=== PATIENT | female | born 1960 | race Caucasian/White ===

== ENCOUNTER 2019-12-28 09:43 | Outpatient (CLI) | payer OTHER ==
[2019-12-28 13:38] LABS: BASOPHILS # (AUTO) 0.1 10^3/uL (0.0-0.1); BASOPHILS % (AUTO) 0.7 %; EOSINOPHILS # (AUTO) 0.2 10^3/uL (0.0-0.7); EOSINOPHILS % (AUTO) 2.9 %; HGB - HEMOGLOBIN 14.8 g/dL (12.0-16.0); LYMPHOCYTES # (AUTO) 2.5 10^3/uL (1.5-3.5); LYMPHOCYTES % (AUTO) 30.3 %; MEAN CORPUSCULAR HEMOGLOBIN 30.5 pg (27.0-31.0); MEAN CORPUSCULAR HGB CONC 32.2 g/dL (32.0-36.0); MEAN CORPUSCULAR VOLUME 94.8 fL (81.0-99.0); MEAN PLATELET VOLUME 10.8 fL (7.9-10.8); MONOCYTES # (AUTO) 0.5 10^3/uL (0.0-1.0); MONOCYTES % (AUTO) 5.6 %; NEUTROPHILS # (AUTO) 4.9 10^3/uL (1.5-6.6); NEUTROPHILS % (AUTO) 60.3 %; PLT - PLATELET COUNT 287 10^3/uL (130-450); RED BLOOD COUNT 4.85 10^6/uL (4.20-5.40); RED CELL DISTRIBUTION WIDTH 13.3 % (12.0-15.0); WHITE BLOOD COUNT 8.2 x10^3/uL (4.8-10.8)
[2019-12-28 13:44] LABS: ALBUMIN 4.1 g/dL (3.2-5.5); ALBUMIN/GLOBULIN RATIO 1.1 (1.0-2.2); ALKALINE PHOSPHATASE 82 IU/L (42-121); ALT ALANINE AMINOTRANSFERASE 47 IU/L (10-60); AST ASPARTATE AMINOTRANSFERASE 40 IU/L (10-42); BILIRUBIN,TOTAL 0.7 mg/dL (0.2-1.0); BUN - BLOOD UREA NITROGEN 10 mg/dL (6-20); CALCIUM 9.2 mg/dL (8.5-10.3); CARBON DIOXIDE - CO2 24 mmol/L (21-32); CHLORIDE 104 mmol/L (101-111); CHOL/HDL RATIO 6.9 (<4.4); CHOLESTEROL 233 mg/dL; CREATININE 0.5 mg/dL (0.4-1.0); GLUCOSE 117 mg/dL (70-100); HDL CHOLESTEROL 34 mg/dL; LDL CHOLESTEROL,CALCULATED 151 mg/dL; LDL/HDL RATIO 4.4 (<4.4); SODIUM 140 mmol/L (135-145); TOTAL PROTEIN 7.8 g/dL (6.7-8.2); VLDL CHOLESTEROL 48 mg/dL
== END 2019-12-28 23:59 | disposition home or self-care (01) ==
LOC: LAB.WCP 09:43
PROVIDERS: ATTEND Registered Nurse
DX: E66.9 Obesity, unspecified (principal); E78.5 Hyperlipidemia, unspecified; I10 Essential (primary) hypertension; F41.9 Anxiety disorder, unspecified; Z87.891 Personal history of nicotine dependence; F32.9 Major depressive disorder, single episode, unspecified
CPT/HCPCS: 36415; 80053; 80061; 83721; 84443; 85025

== ENCOUNTER 2020-12-13 09:30 | Outpatient (CLI) | payer MEDICAID ==
[2020-12-13 14:30] LABS: BASOPHILS # (AUTO) 0.1 10^3/uL (0.0-0.1); BASOPHILS % (AUTO) 0.8 %; EOSINOPHILS # (AUTO) 0.3 10^3/uL (0.0-0.7); EOSINOPHILS % (AUTO) 2.8 %; HCT - HEMATOCRIT 43.1 % (37.0-47.0); HGB - HEMOGLOBIN 14.1 g/dL (12.0-16.0); LYMPHOCYTES % (AUTO) 21.1 %; MEAN CORPUSCULAR HEMOGLOBIN 31.3 pg (27.0-31.0); MEAN CORPUSCULAR HGB CONC 32.7 g/dL (32.0-36.0); MEAN CORPUSCULAR VOLUME 95.8 fL (81.0-99.0); MEAN PLATELET VOLUME 10.7 fL (7.9-10.8); MONOCYTES # (AUTO) 0.5 10^3/uL (0.0-1.0); MONOCYTES % (AUTO) 5.7 %; NEUTROPHILS # (AUTO) 6.6 10^3/uL (1.5-6.6); NEUTROPHILS % (AUTO) 69.3 %; PLT - PLATELET COUNT 253 10^3/uL (130-450); RED CELL DISTRIBUTION WIDTH 13.7 % (12.0-15.0); WHITE BLOOD COUNT 9.5 x10^3/uL (4.8-10.8)
[2020-12-13 14:51] LABS: ALBUMIN 4.1 g/dL (3.2-5.5); ALBUMIN/GLOBULIN RATIO 1.3 (1.0-2.2); ALKALINE PHOSPHATASE 73 IU/L (42-121); ALT ALANINE AMINOTRANSFERASE 35 IU/L (10-60); AST ASPARTATE AMINOTRANSFERASE 25 IU/L (10-42); BILIRUBIN,TOTAL 1.1 mg/dL (0.2-1.0); BUN - BLOOD UREA NITROGEN 13 mg/dL (6-20); CALCIUM 9.2 mg/dL (8.5-10.3); CARBON DIOXIDE - CO2 29 mmol/L (21-32); CHLORIDE 104 mmol/L (101-111); CHOLESTEROL 216 mg/dL; CREATININE 0.4 mg/dL (0.4-1.0); GFR - MDRD 162 (>89); GLUCOSE 112 mg/dL (70-100); HDL CHOLESTEROL 43 mg/dL; LDL CHOLESTEROL,CALCULATED 126 mg/dL; LDL/HDL RATIO 2.9 (<4.4); SODIUM 141 mmol/L (135-145); TOTAL PROTEIN 7.2 g/dL (6.7-8.2); TRIGLYCERIDES 233 mg/dL; VLDL CHOLESTEROL 47 mg/dL
[2020-12-13 14:56] LABS: THYROID STIMULATING HORMONE 2.24 uIU/mL (0.34-5.60)
== END 2020-12-13 09:31 | disposition home or self-care (01) ==
LOC: LAB.S 09:30
PROVIDERS: ATTEND Registered Nurse
DX: I10 Essential (primary) hypertension (principal); E78.5 Hyperlipidemia, unspecified; F41.9 Anxiety disorder, unspecified; F32.9 Major depressive disorder, single episode, unspecified
CPT/HCPCS: 36415; 80053; 80061; 83721; 84443; 85025

== ENCOUNTER 2022-12-30 12:54 | Outpatient (CLI) | payer MEDICAID ==
[2022-12-30 13:14] LABS: BASOPHILS # (AUTO) 0.1 10^3/uL (0.0-0.1); BASOPHILS % (AUTO) 0.6 %; EOSINOPHILS # (AUTO) 0.2 10^3/uL (0.0-0.7); EOSINOPHILS % (AUTO) 1.4 %; HCT - HEMATOCRIT 44.5 % (37.0-47.0); HGB - HEMOGLOBIN 14.8 g/dL (12.0-16.0); LYMPHOCYTES # (AUTO) 2.4 10^3/uL (1.5-3.5); LYMPHOCYTES % (AUTO) 21.2 %; MEAN CORPUSCULAR HEMOGLOBIN 30.8 pg (27.0-31.0); MEAN CORPUSCULAR HGB CONC 33.3 g/dL (32.0-36.0); MEAN CORPUSCULAR VOLUME 92.7 fL (81.0-99.0); MEAN PLATELET VOLUME 9.8 fL (7.9-10.8); MONOCYTES # (AUTO) 0.7 10^3/uL (0.0-1.0); MONOCYTES % (AUTO) 6.1 %; NEUTROPHILS # (AUTO) 8.1 10^3/uL (1.5-6.6); NEUTROPHILS % (AUTO) 70.4 %; PLT - PLATELET COUNT 259 10^3/uL (130-450); RED CELL DISTRIBUTION WIDTH 13.8 % (12.0-15.0); WHITE BLOOD COUNT 11.5 x10^3/uL (4.8-10.8)
[2022-12-30 14:01] LABS: THYROID STIMULATING HORMONE 1.84 uIU/mL (0.34-5.60)
[2022-12-30 14:32] LABS: ALBUMIN 3.9 g/dL (3.2-5.5); ALBUMIN/GLOBULIN RATIO 1.1 (1.0-2.2); ALKALINE PHOSPHATASE 86 IU/L (42-121); ALT ALANINE AMINOTRANSFERASE 32 IU/L (10-60); AST ASPARTATE AMINOTRANSFERASE 24 IU/L (10-42); BILIRUBIN,TOTAL 0.9 mg/dL (0.2-1.0); BUN - BLOOD UREA NITROGEN 8 mg/dL (6-20); CALCIUM 8.8 mg/dL (8.5-10.3); CARBON DIOXIDE - CO2 27 mmol/L (21-32); CHLORIDE 101 mmol/L (101-111); CHOL/HDL RATIO 2.9 (<4.4); CHOLESTEROL 143 mg/dL; CREATININE 0.4 mg/dL (0.4-1.0); GFR - MDRD 161 (>89); GLUCOSE 115 mg/dL (70-100); HDL CHOLESTEROL 49 mg/dL; LDL CHOLESTEROL,CALCULATED 65 mg/dL; LDL/HDL RATIO 1.3 (<4.4); POTASSIUM 3.5 mmol/L (3.5-5.0); SODIUM 139 mmol/L (135-145); TOTAL PROTEIN 7.3 g/dL (6.7-8.2); TRIGLYCERIDES 143 mg/dL; VLDL CHOLESTEROL 29 mg/dL
== END 2022-12-30 12:55 | disposition home or self-care (01) ==
LOC: LAB 12:54
PROVIDERS: ATTEND Registered Nurse
DX: I10 Essential (primary) hypertension (principal); Z79.899 Other long term (current) drug therapy; E78.5 Hyperlipidemia, unspecified
CPT/HCPCS: 36415; 80053; 80061; 83721; 84443; 85025

== ENCOUNTER 2023-04-02 10:47 | Outpatient (CLI) | payer BC, MEDICAID ==
[2023-04-02] MEDS ORDERED: ALBUTEROL 1 PUFF INH STA (15:15)
== END 2023-04-02 10:48 | disposition home or self-care (01) ==
LOC: RT 10:47
PROVIDERS: ATTEND Registered Nurse
DX: J45.909 Unspecified asthma, uncomplicated (principal)
CPT/HCPCS: 94060; 94729

== ENCOUNTER 2023-05-07 10:19 | Emergency (ER) | payer BC ==
--- NOTE | 2023-05-07 10:40 | ED Physician Documentation ---
PD HPI NECK PAIN - Stated complaint Stated Complaint: NECK PX - Chief complaint Chief Complaint: General - History obtained from History obtained from: Patient - History of Present Illness Timing - onset: How many days ago (1) Timing - duration: Days (1) Timing - details: Gradual onset, Still present Location: Upper, Right (initially one side then both involved with paina nd stiffness. No fever, rash radiation, weakness, nmbness.), Left Quality: Pain, Spasm, Aching Associated symptoms: No: Fever, Weakness, Numbness Worsened by: Movement, Palpation Contributing factors: No: Lifting, Twisting, Trauma Similar symptoms before: Has not had sx before Recently seen: Not recently seen Review of Systems Constitutional: denies: Fever Nose: denies: Rhinorrhea / runny nose, Congestion Throat: denies: Sore throat Respiratory: denies: Cough Skin: denies: Rash, Lesions PD PAST MEDICAL HISTORY - Past Medical History Cardiovascular: None Musculoskeletal: None - Present Medications Home Medications: Ambulatory Orders Medication Instructions Recorded Confirmed HYDROcod/ACETAM 5/325 [Childs 5/325] 1 ea PO Q6H PRN #15 tablet 05/07/23 methocarbamoL [Robaxin] 500 mg PO Q6H PRN #20 tablet 05/07/23 - Allergies Allergies/Adverse Reactions: Allergies Allergy/AdvReac Type Severity Reaction Status Date / Time morphine Allergy Hives Verified 05/07/23 10:36 PD ED PE NORMAL - Vitals Vital signs reviewed: Yes - General General: Alert and oriented X 3, No acute distress, Well developed/nourished, Other (guarding ROM of her neck.) - Neck Neck: Supple, no meningeal sign, No bony TTP (has tenderness focally at upper trapezius insertion areas and moderate tender along trapezius muslces laterally. ), No adenopathy - Cardiac Cardiac: RRR, No murmur - Respiratory Respiratory: No respiratory distress, Clear bilaterally - Derm Derm: Normal color, Warm and dry, No rash Results - Vitals Vitals: Oxygen O2 Source Room air PD Medical Decision Making - ED course Complexity details: considered differential (muscular type neck pain without red flags on history nor exam. Will treat with muscle relaxants and pain meds. She had focal tenderness at uppeer trapezius insertions both sides so I did trigger point injection with lidocaine 1.5 ml each side. ), d/w patient Departure - Departure Disposition: 01 Home, Self Care Clinical Impression: Acute strain of neck muscle Qualifiers: Encounter type: initial encounter Qualified Code(s): S16.1XXA - Strain of muscle, fascia and tendon at neck level, initial encounter Condition: Stable Record reviewed to determine appropriate education?: Yes Instructions: ED Sprain Strain Neck Follow-Up: Raissa Bee ARNP [Primary Care Provider] - Prescriptions: HYDROcod/ACETAM 5/325 [Childs 5/325] 1 ea PO Q6H PRN #15 tablet PRN Reason: Pain methocarbamoL [Robaxin] 500 mg PO Q6H PRN #20 tablet PRN Reason: Spasms Comments: He is gentle stretching for the neck to help reduce stiffness and spasms. He can use Tylenol 600 500 to 650 mg 4 times daily. Robaxin muscle relaxant for stiffness and spasms. You can add the hydrocodone in lieu of Tylenol every 6 hours if needed for worse pain. Neck and back pain are relatively common in often go away within a week or so. Follow-up if needed still approximately a week. I sent your prescriptions to [facility] pharmacy. My narcotic instructions I am prescribing a short course of narcotic pain medication for you. These are potentially dangerous and addictive medications that should be used carefully. These medications may constipate you. Take an [id number] stool softener such as docusate twice daily with plenty of water while taking these medications. If you go 24 hours without a bowel movement, take [id number]-teafbmq MiraLAX, per package instructions. Do not drink or drive while taking these medications. If you received narcotic or sedating medications while in the emergency department do not drive for 24 hours. Store this medication in a safe, secure place and out of reach of children. It is a violation of federal law to give or sell this medication to another person or to use in a manner other than prescribed. The ED will not refill narcotic prescriptions, including prescriptions lost or stolen. You can dispose of unwanted medications at the [facility]'s office or at several pharmacies such as [facility]. Forms: PCP List Discharge Date/Time: 05/07/23 12:36
[2023-05-07] MEDS ORDERED: methocarbamoL 500 MG TABLET PO STA (10:50)
[2023-05-07] MEDS ORDERED: HYDROcod/ACETAM 5/325 MG TABLET PO STA (10:50)
[2023-05-07 12:45] VITALS: BP 120/87; O2SAT 99
== END 2023-05-07 12:36 | disposition home or self-care (01) ==
LOC: ED 10:19
DX: S16.1XXA Strain of muscle, fascia and tendon at neck level, initial encounter (principal); X58.XXXA Exposure to other specified factors, initial encounter
CPT/HCPCS: 20552; 99282; 99283; A9270

== ENCOUNTER 2023-08-05 13:58 | Outpatient (CLI) | payer BC, MEDICARE ==
--- NOTE | 2023-08-05 14:52 | Sleep Patient Instructions ---
Sleep Center Visit Summary - Patient Visit Information Reason for Visit: Initial consult for evaluation of sleep disordered breathing and other sleep issues. - Patient Instructions Instructions Attached: Sleep Study Additional Instructions: You will be completing a sleep study, either an in-lab polysomnography (PSG) or home sleep study (HST). You will follow-up in the sleep care office after the sleep study is completed to hear the results and talk about therapy, if needed. You will be called by our office staff to schedule this appointment, but you may contact us with any questions. - Clinic Information Contact: [facility] [address] [place] [address] [email or web address] T: [phone]
--- NOTE | 2023-08-05 14:54 | SLEEP CARE CONSULTATION ---
Information from patient questionnaire entered by Maicol Panda. I have reviewed and concur with the information entered by Maicol Panda. This document represents the service I personally performed and the decisions made by me, Gisel Hernandez ARNP. History of Present Illness Service Date and Time: 08/05/2023 1358 Reason for Visit: New patient Chief Complaint: reports: Insomnia, Unrefreshed sleep, Snoring, Excessive daytime sleepiness, Frequent awakenings at night Date of Onset: YRS Usual bedtime: 11PM Time it takes to fall asleep: A LONG TIME; several hours, 3-4 times a week Snores at night: Yes Observed to quit breathing while asleep: Yes Sleeps alone due to snoring: Yes Number of times waking at night: 5-6 Reasons for waking at night: reports: Gasping for air, Bathroom, Other (UNKNOWN). denies: Choking, Snoring Toss, Turn, or Twitch while sleeping: Yes Recalls having dreams: Yes Usually gets out of bed at: 7AM Feels refreshed in the morning: No Morning headache: Yes (SOMETIMES; 2 times a month) Sleepy or fatigued during the day: Yes Ever fallen asleep while driving: No Takes day naps: Yes (2 times a week for a couple hours) Dreams during day naps: Yes Prior sleep studies: No Additional HPI information: I had the pleasure of seeing JOVANNI MELTON today regarding the possibility of her having a sleep disorder. Her current complaints are daytime sleepiness, fatigue, frequent night awakenings, insomnia, snoring and unrefreshed sleep. She was diagnosed with atrial fibrillation and had a cardioversion. She was placed on a medication to slow her heart rate and she woke up in this last week and felt lightheaded. She has a call in to discuss with doctor. - Parasomnia Symptoms Ever been unable to move upon waking from sleep: No Walks in sleep: No Talks in sleep: Yes Ever acted out dreams in sleep: No Ever felt weak in the knees when startled or emotional: No Bothered by creepy, crawly, restless sensations in legs: Yes (when she lays down) Problems with memory or concentration: No Subjective Initial [place] Sleepiness Scale score: 5 (07/26/23) Past Medical History Past Medical History: reports: Hypertension, Anxiety, Other (AFIB) Social History The patient's occupation is a RE. Patient is and lives in [place]. Have you smoked in the past 12 months: No Cigarettes per day (20/pack): 10 Years of smokin Quit date: 2021 Smoking Pack Years: 10.0 Alcohol use: Yes Alcohol amount and frequency: HAVE NOT DRANK IN 4MONTHS Caffeine use: Yes Caffeine amount and frequency: 1 CUP COFFEE A DAY Family History Family history of sleep disordered breathing: Yes Family Hx Sleep Apnea: Other: Snoring (UNCLE [employer] COUSINS), Sleep apnea - Treated ([employer]), Sleep apnea - Untreated ([employer]) Allergies and Home Medications Known drug allergies: Yes (as listed) Drug allergies reviewed: Yes Home medication list reviewed: Yes Allergy and home medication list: Allergies morphine Allergy (Verified 08/04/23 09:29) Hives Sulfa Home Medications Medication Instructions Recorded Confirmed Last Taken Type Acetaminophen [Tylenol Arthritis] See Rx Instructions .ROUTE .COMPLEX 08/05/23 08/05/23 Unknown History Amlodipine Besylate [Norvasc] See Rx Instructions .ROUTE .COMPLEX 08/05/23 08/05/23 Unknown History Apixaban [Eliquis] See Rx Instructions .ROUTE .COMPLEX 08/05/23 08/05/23 Unknown History Citalopram Hydrobromide See Rx Instructions .ROUTE .COMPLEX 08/05/23 08/05/23 Unknown History [Citalopram HBr] Fluticasone/Salmeterol [Advair Hfa See Rx Instructions .ROUTE .COMPLEX 08/05/23 08/05/23 Unknown History 115-21 Mcg Inhaler] Losartan [Cozaar] See Rx Instructions .ROUTE .COMPLEX 08/05/23 08/05/23 Unknown History bisoproloL fumarate [Bisoprolol See Rx Instructions .ROUTE .COMPLEX 08/05/23 08/05/23 Unknown History Fumarate] hydroCHLOROthiazide [Hydrodiuril] See Rx Instructions .ROUTE .COMPLEX 08/05/23 08/05/23 Unknown History Review of Systems Weight gain over past 5 years: 30 Cardiovascular: reports: high blood pressure, irregular heart rate or pulse, leg or foot swelling Respiratory: reports: shortness of breath, wheeze Gastrointestinal: denies: heartburn Neurological: denies: headaches Psychiatric: reports: anxiety Ear/Nose/Throat: reports: dry mouth/throat. denies: tonsillectomy Musculoskeletal: reports: joint pain, back pain, muscle pain or cramping Immunologic: reports: sneezing Physical Exam Vital signs obtained and entered by: MAICOL Danielson MA Blood Pressure: 130/82 (LEFT ARM) Cuff size: regular Heart Rate: 79 O2 Saturation: 95 Height: 5 ft 5 in Weight: 245 lb 9.6 oz Body Mass Index: 40.8 BMI Classification: Morbidly Obese Neck circumference: 17.5 Mouth and throat: narrow oropharynx Soft palate: long Hard palate: normal Uvula: normal Uvula visualization: 25% Mallampati Class III Tongue: normal in size Tonsils: small Neck: normal w/o lymphadenopathy or thyromegaly Heart: regular rate and rhythm Lungs: clear bilaterally Impression and Plan 1. Suspected Obstructive Sleep Apnea-Hypopnea Syndrome, as suggested by a history of loud and irregular snoring, gasping or choking in sleep, frequent awakening during the night, unrefreshed sleep, cognitive impairment, and excessive daytime sleepiness. Narrow oropharynx and obesity are common predisposing factors for obstructive sleep apnea-hypopnea syndrome. I recommend proceeding to polysomnography to confirm the diagnosis and to assess severity. If the patient has significant sleep disordered breathing, a manual CPAP titration study will also be performed to find the optimal treatment pressure. I informed the patient of what the sleep studies involve and after some discussion, obtained agreement to proceed. The pathophysiology of obstructive sleep apnea-hypopnea syndrome was discussed with the patient and health risks of cardiovascular and cerebrovascular disease if not treated. Risks of drowsy driving discussed in detail and patient advised to avoid long distance driving and to pullboat engineer at the first sign of drowsiness. Patient agreed to plan. * Schedule polysomnography +- manual CPAP titration study and return in 1-2 weeks after the study to discuss result and initiate therapy. * Avoid long distance driving or driving when feeling sleepy. * Avoid alcohol, sedative and muscle relaxant around bedtime. * Attempt to lose weight. * Review instructions provided by trained office staff on how to prepare for the sleep study. * Return for follow-up after sleep study completed. Counseling Topics: Weight loss health impact Plan: PSG Visit Type: In Office Time Spent with Patient (minutes): 30 Provider Statement: I spent 100% of the Face to Face Visit with the patient with greater than 50% spent counseling the patient and coordination of care.
[2023-08-05 15:11] VITALS: BP 130/82; O2SAT 95
== END 2023-08-05 13:59 | disposition home or self-care (01) ==
LOC: SC 13:58
PROVIDERS: ATTEND Nurse Practitioner Family
DX: G47.10 Hypersomnia, unspecified (principal); R53.83 Other fatigue; G47.8 Other sleep disorders; R51.9 Headache, unspecified; R06.83 Snoring; I10 Essential (primary) hypertension; I49.9 Cardiac arrhythmia, unspecified; E66.01 Morbid (severe) obesity due to excess calories; Z87.891 Personal history of nicotine dependence; Z68.41 Body mass index [BMI] 40.0-44.9, adult
CPT/HCPCS: 99203; G0463; 99212

== ENCOUNTER 2023-08-21 09:37 | Outpatient (CLI) | payer MEDICARE | END 2023-08-21 09:38 | disposition home or self-care (01) | LOC: SC 09:37 | PROVIDERS: ATTEND Nurse Practitioner Family | DX: G47.33 Obstructive sleep apnea (adult) (pediatric) (principal); R09.02 Hypoxemia; E66.01 Morbid (severe) obesity due to excess calories; Z68.41 Body mass index [BMI] 40.0-44.9, adult | CPT/HCPCS: G0399 ×2; 95806 ==

== ENCOUNTER 2023-09-05 14:54 | Outpatient (CLI) | payer MEDICARE ==
--- NOTE | 2023-09-05 15:33 | Sleep Patient Instructions ---
Sleep Center Visit Summary - Patient Visit Information Reason for Visit: Sleep study follow-up - Patient Instructions Instructions Attached: CPAP Additional Instructions: You are being started on CPAP therapy with pressure setting at 4-15 cmH2O. You w ill need to call the sleep care office to set up your follow up once you have your APAP machine and we will schedule a visit to check compliance and response to therapy at that time. You may call the office with any concerns about pressure feeling too low or too much for adjustment, if needed. You should contact DME supplier for any questions or concerns about mask or equipment. Please call office to schedule a follow up appointment in the sleep care office one month after obtaining new device. - Clinic Information Contact: [facility] [address] [place] [address] [email or web address] T: [phone]
--- NOTE | 2023-09-05 15:36 | SLEEP CARE CONSULTATION ---
Information from patient questionnaire entered by Zahra Panda. I have reviewed and concur with the information entered by Zahra Panda. This document represents the service I personally performed and the decisions made by , Gisel Hernandez ARNP. History of Present Illness Service Date and Time: 09/05/2023 145 Initial [place] Sleepiness Scale score: 5 (07/26/23) Current [place] Sleepiness Scale score: 4 (09/05/23) Additional HPI information: JOVANNI MELTON returns for follow up and results of the recently performed home sleep study. The sleep study showed moderate obstructive sleep apnea with an average AHI of 22.1 and julia oxygen saturation of 78%. I explained the pathophysiology behind obstructive sleep apnea. We then spent quite a bit of time discussing different treatment options. For mild obstructive sleep apnea, surgery and oral appliance are alternatives to nasal CPAP therapy but in moderate or severe cases, nasal CPAP is the most effective and reliable treatment. I reviewed the impact of weight changes on sleep apnea and strongly recommended losing weight. After some discussion, the patient opted to go with the nasal CPAP therapy. Nasal autoCPAP set at 4-15 cmH20 will be ordered with rationale explained. A manual titration study will be ordered if unable to find optimal pressure with office adjustments. I explained how CPAP machine works and what to expect when using the machine. Using CPAP every night in order to get used to it was emphasized. Patient advised to put CPAP mask on before getting into bed so as not to fall asleep without CPAP. To assist acclimation to CPAP use, it could a lso be used for a short time during day while reading or watching TV. The patient was instructed to call the CPAP supplier to discuss any mechanical problem that may occur. If the mask given is uncomfortable or is difficult to keep on through the night even with adjustment, contact the CPAP supplier as many will replace with another mask style if notified before 30 days. If snoring or perceives is not getting enough air or too much air from the machine, notify this office. Patient does not drink alcohol but rarely. Patient was cautioned about risks of drowsy driving until sleepiness symptoms resolve. Patient denies drowsy driving. Sleep Study - Results Type of Sleep Study: Home sleep study (COMPLETED 08/21/23) Prior sleep studies: No Polysomnography/Home Sleep Study results: Physician Impression: The quality of the study is good. The length of the study is adequate (> 240 minutes). Please also see the tabulated and graphic data. 1. Obstructive Sleep Apnea-Hypopnea (ICD-10 G47.33), moderate, with an AHI of 22.1/hr and julia SaO2 of 78%. During the study, the patient had 153 apneas (153 obstructive, 0 central, 0 mixed) and 48 hypopneas. The longest episode lasted 89.5 seconds. The respiratory events occurred more frequently during supine sleep (supine AHI was 30.2 and non-supine, 13.32). 2. Hypoxemia (ICD-10 R09.02), moderate, with the lowest oxygen saturation of 78 % and 189.3 minutes with SaO2 under 90%. Baseline oxygen saturation was normal (Average oxygen saturation was 90%). Allergies and Home Medications Known drug allergies: Yes (as listed) Drug allergies reviewed: Yes Home medication list reviewed: Yes (no changes) Allergy and home medication list: Allergies morphine Allergy (Verified 08/05/23 14:00) Hives Sulfa (Sulfonamide Antibiotics) Allergy (Verified 08/05/23 14:00) Review of Systems Review of systems same as previous: Yes (NO CHANGE) Physical Exam Vital signs obtained and entered by: ZAHRA Danielson MA Blood Pressure: 175/104 (RIGHT ARM) Cuff size: regular Heart Rate: 87 O2 Saturation: 98 Height: 5 ft 5 in Weight: 254 lb Body Mass Index: 42.3 BMI Classification: Morbidly Obese Impression and Plan 1. Obstructive Sleep Apnea-Hypopnea Syndrome, moderate, with lowest oxygen saturation of 78%. Obviously this is the cause of the patients symptoms of unrefreshed sleep, and excessive daytime sleepiness. Positive pressure therapy could benefit hypertension, arrhythmia (atrial fibrillation) and anxiety. As mentioned above, the patient will be started on nasal autoCPAP therapy with pressure set at 4-15 cmH2O. A manual titration study will be completed if unable to find optimal treatment pressure with office adjustments. Compliance guidelines also reviewed. A copy of compliance guidelines will be given for reference at check out. Because the apnea is more severe supine, I instructed to avoid sleeping supine using pillow positioning until able to start CPAP use. 2. Hypoxemia, moderate, with a julia oxygen saturation of 78% and 189.3 minutes spent under 90%. The baseline oxygen saturation was normal with an average oxygen saturation of 90%. 3. Obesity, unspecified. Currently patients BMI is 42.3. Obesity increases the risk of apnea, CPAP pressure requirements and overall health risks especially cardiovascular and diabetes. Thus patient is advised to lose weight. * Nasal auto CPAP therapy, pressure at 4-15 cmH2O. * Attempt to lose weight. * Avoid alcohol consumption near bedtime. * Avoid supine sleep until using CPAP. * The patient is again cautioned about driving until sleepiness completely resolves. * Return one month after CPAP obtained. I will assess response to therapy and compliance at that time. Counseling Topics: Sleeping position, Weight loss health impact Prescriptions: Auto CPAP Plan: compliance visit Visit Type: In Office Time Spent with Patient (minutes): 20 Provider Statement: I spent 100% of the Face to Face Visit with the patient with greater than 50% spent counseling the patient and coordination of care.
[2023-09-05 15:48] VITALS: BP 175/104; O2SAT 98
== END 2023-09-05 14:55 | disposition home or self-care (01) ==
LOC: SC 14:54
PROVIDERS: ATTEND Nurse Practitioner Family
DX: G47.33 Obstructive sleep apnea (adult) (pediatric) (principal); R09.02 Hypoxemia; E66.01 Morbid (severe) obesity due to excess calories; Z68.41 Body mass index [BMI] 40.0-44.9, adult
CPT/HCPCS: 99213; G0463; 99212

== ENCOUNTER 2023-11-07 12:48 | Outpatient (CLI) | payer MEDICARE ==
--- NOTE | 2023-11-07 13:26 | Sleep Patient Instructions ---
Sleep Center Visit Summary - Patient Visit Information Reason for Visit: First compliance follow-up - Patient Instructions Additional Instructions: You were here for follow up of CPAP therapy. You will be continued on CPAP therapy with pressure at 10-14 cmH2O. Please let us know if the pressure change is uncomfortable and we can make further adjustments of the pressure. I have added a mask refitting to try the Sleepweaver cloth mask. Your CPAP supplier should contact you about this but you may call if you do not hear from them. You should follow up with sleep care in 1-2 months. You may contact us sooner for any questions or concerns. - Clinic Information Contact: [facility] [address] [place] [address] [email or web address] T: [phone]
--- NOTE | 2023-11-07 13:33 | SLEEP CARE CONSULTATION ---
Information from patient questionnaire entered by Maicol Panda. I have reviewed and concur with the information entered by Maicol Panda. This document represents the service I personally performed and the decisions made by , Gisel Hernandez ARNP. History of Present Illness Service Date and Time: 11/07/2023 1248 Previous diagnosis: Moderate, Obstructive Sleep Apnea-Hypopnea Syndrome AHI: 22.1 (08/21/23) Reason for follow up: first compliance Equipment type: CPAP (RESMED Airsense 11, s/u 09/2023) Equipment obtained from: Other ([facility]; getting supplies) Mask style: Nasal pillows Mask brand: Resmed (AirFit P30i) Backup mask available: Yes (other mask) Prior sleep studies: No Type of Sleep Study: Home sleep study (COMPLETED 08/21/23) HPI additional information: JOVANNI MELTON was diagnosed to have moderate, AHI 22.1, obstructive sleep apnea-hypopnea syndrome and returned today for CPAP therapy first compliance follow-up. Sleep Study - Results Type of Sleep Study: Home sleep study (COMPLETED 08/21/23) Prior sleep studies: No CPAP Compliance Data - Data Reviewed with Patient Average duration of nightly device use: 6 HRS 41 MINS Compliance rate %: 70 (09/17/23-10/16/23; /30 days used; 93% in last 30 days) Current pressure setting (cmH2O): 4-15 (median 8.2, avg 11.1, max 12.9) Average residual AHI: 3.2 Central apnea: 0 Obstructive apnea: 2.8 Hypopnea: 0.2 Average large leak: 2 L/min Subjective Missed days of use due to: reports: mask issues (rash on face from mask) Patient concerns: reports: mask leak noise, condensation in mask/hose, dry mouth, nose, throat (dry nose). denies: aerophagia, mask discomfort, air blowing in eyes, nasal congestion, epistaxis Observed to snore while using device: No Current pressure setting perceived as: comfortable On therapy, patient: reports: sleeping better, awakening more refreshed, being more awake and alert during the day, more rested overall. denies: drowsiness while driving Initial [place] Sleepiness Scale score: 5 (07/26/23) Current [place] Sleepiness Scale score: 5 (11/07/23) Allergies and Home Medications Known drug allergies: Yes (as listed) Drug allergies reviewed: Yes Home medication list reviewed: Yes (no changes) Allergy and home medication list: Allergies morphine Allergy (Verified 10/30/23 15:41) Hives Sulfa (Sulfonamide Antibiotics) Allergy (Verified 10/30/23 15:41) Review of Systems Review of systems same as previous: Yes (NO CHANGE) Physical Exam Vital signs obtained and entered by: MAICOL Danielson MA Blood Pressure: 151/92 (RIGHT ARM) Cuff size: regular Heart Rate: 82 O2 Saturation: 98 Height: 5 ft 5 in Weight: 264 lb 12.8 oz Body Mass Index: 44.0 BMI Classification: Morbidly Obese Impression and Plan 1. Obstructive Sleep Apnea-Hypopnea Syndrome, moderate, with good treatment compliance and good apnea control. On CPAP therapy, the patient has better sleep quality and is more rested overall. She has been doing well and is seeing improvement of sleep. She has had some skin sensitivity, causing rash and facial swelling. She washed the mask and even tried a different mask. She likes the AirFit P30i and after washing and using barrier, she still gets a little "burning" feeling on her face where the mask touches. I think she should change to a Sleepweaver cloth nasal cushion mask for comfort and to reduce skin irritation. She voiced understanding. The patients pressure will be changed to autoCPAP 10-14 cmH20 to reflect pressure being used. Patient advised to contact me if pressure change is uncomfortable so that it can be adjusted. Goals for apnea control discussed. Patient's apnea severity and rationale for treatment to reduce apnea, improve sleep quality and reduce cardiovascular and cerebrovascular events was reviewed. I also reviewed the benefit of consistent device use of CPAP for hypertension, arrhythmia, anxiety. 2. Obesity, unspecified. Currently patients BMI is 44. Obesity increases the risk of apnea, CPAP pressure requirements and overall health risks especially cardiovascular and diabetes. Thus patient is advised to lose weight. * Change auto CPAP pressure to 10-14 cmH2O * Mask refitting for Sleepweaver cloth nasal cushion mask. * Notify me if snoring with mask or feeling that the pressure is too much or too little * Attempt to lose weight * Call this office if any problems using CPAP * Return for follow up in 1-2 months, or sooner if concerns arise Counseling Topics: Spare mask, Weight loss health impact Follow up with Sleep Care in: 1-2 months Visit Type: In Office Time Spent with Patient (minutes): 25 Provider Statement: I spent 100% of the Face to Face Visit with the patient with greater than 50% spent counseling the patient and coordination of care.
[2023-11-07 13:36] VITALS: BP 151/92; O2SAT 98
== END 2023-11-07 12:49 | disposition home or self-care (01) ==
LOC: SC 12:48
PROVIDERS: ATTEND Nurse Practitioner Family
DX: G47.33 Obstructive sleep apnea (adult) (pediatric) (principal); E66.01 Morbid (severe) obesity due to excess calories; Z68.41 Body mass index [BMI] 40.0-44.9, adult
CPT/HCPCS: 99213; G0463; 99212

== ENCOUNTER 2024-01-15 08:21 | Outpatient (CLI) | payer MEDICARE ==
--- NOTE | 2024-01-15 08:55 | Sleep Patient Instructions ---
Sleep Center Visit Summary - Patient Visit Information Reason for Visit: 2-month follow-up - Patient Instructions Additional Instructions: You were here for follow up of CPAP therapy. You will be continued on CPAP therapy with pressure at 10-14 cmH2O. You should follow up with sleep care in 3 months. You may contact us sooner for any questions or concerns. - Clinic Information Contact: [facility] [address] [place] [address] [email or web address] T: [phone]
--- NOTE | 2024-01-15 09:01 | SLEEP CARE CONSULTATION ---
Information from patient questionnaire entered by Maicol Panda. I have reviewed and concur with the information entered by Maicol Panda. This document represents the service I personally performed and the decisions made by , Gisel Hernandez ARNP. History of Present Illness Service Date and Time: 01/15/2024820 Previous diagnosis: Moderate, Obstructive Sleep Apnea-Hypopnea Syndrome AHI: 22.1 (08/21/23) Reason for follow up: other (2 MONTH F/U ) Equipment type: CPAP (RESMED Airsense 11, s/u 09/2023) Equipment obtained from: Other ([facility]; getting supplies) Mask style: Nasal pillows Mask brand: Resmed (Airfit P30i) Backup mask available: Yes Last cushion change: over 2 months, washing daily Prior sleep studies: No Type of Sleep Study: Home sleep study (COMPLETED 08/21/23) HPI additional information: JOVANNI MELTON was diagnosed to have moderate, AHI 22.1, obstructive sleep apnea-hypopnea syndrome and returned today for CPAP therapy two month follow-up. Sleep Study - Results Type of Sleep Study: Home sleep study (COMPLETED 08/21/23) Prior sleep studies: No CPAP Compliance Data - Data Reviewed with Patient Average duration of nightly device use: 7 HRS 35 MINS Compliance rate %: 95 (11/14/23-01/12/24; 59/60 days) Current pressure setting (cmH2O): 10-14 Average residual AHI: 3.5 Central apnea: 0 Obstructive apnea: 3 Hypopnea: 0.1 Average large leak: 4.4 L/min Subjective Missed days of use due to: reports: travel Patient concerns: reports: mask discomfort. denies: aerophagia, air blowing in eyes, mask leak noise, condensation in mask/hose, nasal congestion, dry mouth, nose, throat, epistaxis Observed to snore while using device: No Current pressure setting perceived as: comfortable On therapy, patient: reports: sleeping better, awakening more refreshed, being more awake and alert during the day, more rested overall. denies: drowsiness while driving Initial [place] Sleepiness Scale score: 5 (07/26/23) Current [place] Sleepiness Scale score: 4 (01/15/24) Allergies and Home Medications Known drug allergies: Yes (as listed) Drug allergies reviewed: Yes Home medication list reviewed: Yes (no changes) Allergy and home medication list: Allergies morphine Allergy (Verified 01/13/24 10:55) Hives Sulfa (Sulfonamide Antibiotics) Allergy (Verified 01/13/24 10:55) Review of Systems Review of systems same as previous: Yes (NO CHANGE) Physical Exam Vital signs obtained and entered by: MAICOL Danielson MA Blood Pressure: 148/100 (LEFT ARM) Cuff size: long Heart Rate: 79 O2 Saturation: 97 Height: 5 ft 5 in Weight: 270 lb Weight change since last visit: 6 lb gain Body Mass Index: 44.9 BMI Classification: Morbidly Obese Impression and Plan 1. Obstructive Sleep Apnea-Hypopnea Syndrome, moderate, with good treatment compliance and good apnea control. On CPAP therapy, the patient has better sleep quality and is more rested overall. Patient has significant improvement of their sleep apnea and is satisfied with current CPAP therapy. Patient still has some skin irritation with using the mask. She has covered the silicone parts with a plastic which has reduced some of the irritation but she still gets some skin dryness and itching where it touches her face. She has not heard back from [facility] about the Sleepweaver mask ordered at her last visit 2 months ago. She may just not be eligible for the mask until January. I encouraged her to contact them again, but if she still has no resolution of issue to give us a call so we can assist her. She voiced understanding. Patient's apnea severity and rationale for treatment to reduce apnea, improve sleep quality and reduce cardiovascular and cerebrovascular events was reviewed. I also reviewed the benefit of consistent device use of CPAP for hypertension, arrhythmia, anxiety. 2. Obesity, unspecified. Currently patients BMI is 44.9. Obesity increases the risk of apnea, CPAP pressure requirements and overall health risks especially cardiovascular and diabetes. Thus patient is advised to lose weight. * Continue auto CPAP pressure at 10-14 cmH2O * Notify me if snoring with mask or feeling that the pressure is too much or too little * Attempt to lose weight * Call this office if any problems using CPAP * Return for follow up in 3 months, or sooner if concerns arise Counseling Topics: Spare mask, Weight loss health impact Follow up with Sleep Care in: 3 months Visit Type: In Office Time Spent with Patient (minutes): 23 Provider Statement: I spent 100% of the Face to Face Visit with the patient with greater than 50% spent counseling the patient and coordination of care.
[2024-01-15 09:08] VITALS: BP 148/100; O2SAT 97
== END 2024-01-15 08:22 | disposition home or self-care (01) ==
LOC: SC 08:21
PROVIDERS: ATTEND Nurse Practitioner Family
DX: G47.33 Obstructive sleep apnea (adult) (pediatric) (principal); E66.01 Morbid (severe) obesity due to excess calories; Z68.41 Body mass index [BMI] 40.0-44.9, adult
CPT/HCPCS: 99213; G0463; 99212

== ENCOUNTER 2024-03-11 12:20 | Outpatient (CLI) | payer MEDICARE ==
[2024-03-11 12:34] LABS: BASOPHILS # (AUTO) 0.1 10^3/uL (0.0-0.1); BASOPHILS % (AUTO) 0.7 %; EOSINOPHILS # (AUTO) 0.2 10^3/uL (0.0-0.7); EOSINOPHILS % (AUTO) 2.1 %; HCT - HEMATOCRIT 39.6 % (37.0-47.0); HGB - HEMOGLOBIN 13.3 g/dL (12.0-16.0); LYMPHOCYTES % (AUTO) 28.2 %; MEAN CORPUSCULAR HEMOGLOBIN 30.8 pg (27.0-31.0); MEAN CORPUSCULAR HGB CONC 33.6 g/dL (32.0-36.0); MEAN CORPUSCULAR VOLUME 91.7 fL (81.0-99.0); MEAN PLATELET VOLUME 10.1 fL (7.9-10.8); MONOCYTES # (AUTO) 0.6 10^3/uL (0.0-1.0); MONOCYTES % (AUTO) 7.7 %; NEUTROPHILS # (AUTO) 4.4 10^3/uL (1.5-6.6); PLT - PLATELET COUNT 227 10^3/uL (130-450); RED BLOOD COUNT 4.32 10^6/uL (4.20-5.40); RED CELL DISTRIBUTION WIDTH 14.1 % (12.0-15.0); WHITE BLOOD COUNT 7.2 x10^3/uL (4.8-10.8)
[2024-03-11 13:14] LABS: THYROID STIMULATING HORMONE 2.02 uIU/mL (0.34-5.60)
[2024-03-11 13:29] LABS: ALBUMIN 4.3 g/dL (3.2-5.5); ALBUMIN/GLOBULIN RATIO 1.3 (1.0-2.2); ALKALINE PHOSPHATASE 83 IU/L (42-121); ALT ALANINE AMINOTRANSFERASE 23 IU/L (10-60); AST ASPARTATE AMINOTRANSFERASE 17 IU/L (10-42); BUN - BLOOD UREA NITROGEN 12 mg/dL (6-20); CALCIUM 9.4 mg/dL (8.5-10.3); CARBON DIOXIDE - CO2 31 mmol/L (21-32); CHLORIDE 105 mmol/L (101-111); CHOL/HDL RATIO 2.6 (<4.4); CHOLESTEROL 119 mg/dL; CREATININE 0.5 mg/dL (0.6-1.3); GFR - MDRD 124 (>89); GLUCOSE 113 mg/dL (74-104); HDL CHOLESTEROL 46 mg/dL; LDL CHOLESTEROL,CALCULATED 53 mg/dL; LDL/HDL RATIO 1.2 (<4.4); POTASSIUM 4.2 mmol/L (3.5-4.5); SODIUM 141 mmol/L (135-145); TOTAL PROTEIN 7.5 g/dL (6.4-8.9); TRIGLYCERIDES 102 mg/dL; VLDL CHOLESTEROL 20 mg/dL
== END 2024-03-11 12:21 | disposition home or self-care (01) ==
LOC: LAB 12:20
PROVIDERS: ATTEND Registered Nurse
DX: I10 Essential (primary) hypertension (principal); E78.5 Hyperlipidemia, unspecified; Z79.899 Other long term (current) drug therapy; R53.83 Other fatigue; Z13.29 Encounter for screening for other suspected endocrine disorder
CPT/HCPCS: 36415; 80053; 80061; 83721; 84443; 85025

== ENCOUNTER 2024-04-15 08:20 | Outpatient (CLI) | payer MEDICARE ==
--- NOTE | 2024-04-15 08:44 | Sleep Patient Instructions ---
Sleep Center Visit Summary - Patient Visit Information Reason for Visit: 3 month follow up - Patient Instructions Additional Instructions: You were here for follow up of CPAP therapy. You will be continued on CPAP therapy with pressure at 10-14 cmH2O. You should follow up with sleep care in 12 months. You may contact us sooner for any questions or concerns. - Clinic Information Contact: [facility] [address] [place] [address] [email or web address] T: [phone]
--- NOTE | 2024-04-15 08:48 | SLEEP CARE CONSULTATION ---
Information from patient questionnaire entered by Maicol Panda. I have reviewed and concur with the information entered by Maicol Panda. This document represents the service I personally performed and the decisions made by , Gisel Hernandez ARNP. History of Present Illness Service Date and Time: 04/15/2024 08 Previous diagnosis: Moderate, Obstructive Sleep Apnea-Hypopnea Syndrome AHI: 22.1 (08/21/23) Reason for follow up: three month (F/U) Equipment type: CPAP (RESMED Airsense 11, s/u 09/2023) Equipment obtained from: Other ([facility]; getting supplies) Mask style: Nasal pillows Backup mask available: Yes Last cushion change: yesterday Prior sleep studies: No Type of Sleep Study: Home sleep study (COMPLETED 08/21/23) HPI additional information: JOVANNI MELTON was diagnosed to have moderate, AHI 22.1, obstructive sleep apnea-hypopnea syndrome and returned today for CPAP therapy three month follow- up. Sleep Study - Results Type of Sleep Study: Home sleep study (COMPLETED 08/21/23) Prior sleep studies: No CPAP Compliance Data - Data Reviewed with Patient Average duration of nightly device use: 7 HRS 13 MINS Compliance rate %: 86 (01/14/24-04/12/24; 82/90 days used) Current pressure setting (cmH2O): 10-14 Average residual AHI: 3.3 Central apnea: 0.2 Obstructive apnea: 2.9 Hypopnea: 0 Average large leak: 7.5 L/min Subjective Missed days of use due to: reports: family emergency Patient concerns: reports: condensation in mask/hose (around mask, minimal issue), nasal congestion (runny nose, all the time since starting, says it is minor). denies: aerophagia, mask discomfort, air blowing in eyes, mask leak noise, dry mouth, nose, throat, epistaxis Observed to snore while using device: No Current pressure setting perceived as: comfortable On therapy, patient: reports: sleeping better, awakening more refreshed, being more awake and alert during the day, more rested overall. denies: drowsiness while driving Initial [place] Sleepiness Scale score: 5 (07/26/23) Current [place] Sleepiness Scale score: 4 (04/15/24) Allergies and Home Medications Known drug allergies: Yes (as listed) Drug allergies reviewed: Yes Home medication list reviewed: Yes (Metformin 500 mg daily; reduced amlodipine 1/2 pill daily) Allergy and home medication list: Allergies morphine Allergy (Verified 04/15/24 08:27) Hives Sulfa (Sulfonamide Antibiotics) Allergy (Verified 04/15/24 08:27) Home Medications Medication Instructions Recorded Confirmed Last Taken Type Acetaminophen [Tylenol Arthritis] See Rx Instructions .ROUTE .COMPLEX 08/05/23 04/15/24 Unknown History Amlodipine Besylate [Norvasc] See Rx Instructions .ROUTE .COMPLEX 08/05/23 04/15/24 Unknown History Apixaban [Eliquis] See Rx Instructions .ROUTE .COMPLEX 08/05/23 04/15/24 Unknown History Citalopram Hydrobromide See Rx Instructions .ROUTE .COMPLEX 08/05/23 04/15/24 Unknown History [Citalopram HBr] Fluticasone Propion/Salmeterol See Rx Instructions .ROUTE .COMPLEX 08/05/23 04/15/24 Unknown History [Advair Hfa 115-21 Mcg Inhaler] Losartan [Cozaar] See Rx Instructions .ROUTE .COMPLEX 08/05/23 04/15/24 Unknown History bisoproloL fumarate [Bisoprolol See Rx Instructions .ROUTE .COMPLEX 08/05/23 04/15/24 Unknown History Fumarate] hydroCHLOROthiazide [Hydrodiuril] See Rx Instructions .ROUTE .COMPLEX 08/05/23 04/15/24 Unknown History metFORMIN [Glucophage] See Rx Instructions .ROUTE .COMPLEX 04/15/24 04/15/24 Unknown History Review of Systems Review of systems same as previous: Yes (NO CHANGE) Physical Exam Vital signs obtained and entered by: MAICOL Danielson MA Blood Pressure: 160/87 (LEFT ARM) Cuff size: long Heart Rate: 76 O2 Saturation: 97 Height: 5 ft 5 in Weight: 262 lb 3.2 oz Weight change since last visit: 8 lb loss Body Mass Index: 43.6 BMI Classification: Morbidly Obese Impression and Plan 1. Obstructive Sleep Apnea-Hypopnea Syndrome, moderate, with good treatment compliance and good apnea control. On CPAP therapy, the patient has better sleep quality and is more rested overall. She says she has a slightly runny nose since using the CPAP but she says it is minor and the benefits of getting better sleep. She has significant improvement of her sleep apnea and is satisfied with current CPAP therapy. She had no other significant concerns or issues. She is comfortable with her therapy and we will follow up with her next year. Patient's apnea severity and rationale for treatment to reduce apnea, improve sleep quality and reduce cardiovascular and cerebrovascular events was reviewed. I also reviewed the benefit of consistent device use of CPAP for hypertension, arrhythmia, anxiety. 2. Obesity, unspecified. Currently patients BMI is 43.6. She has lost weight. Obesity increases the risk of apnea, CPAP pressure requirements and overall health risks especially cardiovascular and diabetes. Thus patient is advised to continue to try to lose weight. * Continue auto CPAP pressure at 10-14 cmH2O * Notify me if snoring with mask or feeling that the pressure is too much or too little * Attempt to lose weight * Call this office if any problems using CPAP * Return for follow up in 12 months, or sooner if concerns arise Counseling Topics: Spare mask, Weight loss health impact Follow up with Sleep Care in: 1 year Visit Type: In Office Time Spent with Patient (minutes): 20 Provider Statement: I spent 100% of the Face to Face Visit with the patient with greater than 50% spent counseling the patient and coordination of care.
[2024-04-15 08:54] VITALS: BP 160/87; O2SAT 97
== END 2024-04-15 08:21 | disposition home or self-care (01) ==
LOC: SC 08:20
PROVIDERS: ATTEND Nurse Practitioner Family
DX: G47.33 Obstructive sleep apnea (adult) (pediatric) (principal); E66.01 Morbid (severe) obesity due to excess calories; Z68.41 Body mass index [BMI] 40.0-44.9, adult
CPT/HCPCS: 99213; G0463; 99212